=== PATIENT | male | born 1935 | race Caucasian/White ===

== ENCOUNTER 2020-06-20 14:17 | Observation (INO) | payer BC ==
[2020-06-20] MEDS ORDERED: SODIUM CHLORIDE 0.9% 500 ML 500 ML IV STA (15:34)
[2020-06-20 16:04] LABS: Appearance,Urine Turbid (Clear); Bacteria,Urine Many /hpf; Bilirubin,Urine Negative (Negative); Blood,Urine Moderate (Negative); Color,Urine Yellow; Glucose,Urine (UA) Negative (Negative); Ketones,Urine Negative (Negative); Leukocyte Esterase,Urine Large (Negative); Nitrite,Urine Negative (Negative); Protein,Urine 2+ (Negative); RBC,Urine 69 /hpf (0-5); Specific Gravity,Urine 1.017 (1.001-1.035); Urobilinogen,Urine <2.0 mg/dL (<2.0); WBC,Urine >182 /hpf (0-5)
[2020-06-20] MEDS ORDERED: cefTRIAXone IN SWFI 1,000 MG/10 ML SYRINGE IVP STA (16:11)
[2020-06-20 16:12] LABS: Albumin 3.8 g/dL (3.5-5.0); Calcium 9.2 mg/dL (8.4-10.2); Total Bilirubin 1.9 mg/dL (0.2-1.3); Total Protein 7.2 g/dL (6.3-8.2)
--- NOTE | 2020-06-20 16:17 | ED ---
Fever HPI - General Chief Complaint: Fever Stated Complaint: FLU like symptoms Time Seen by Provider: 06/20/20 14:45 Source: patient, family Mode of arrival: wheelchair Limitations: no limitations - History of Present Illness Initial Comments: Patient is a 85-year-old male past medical history of gout who presents to the emergency department with reported fever. Son is at bedside and helps provide the history. Reports that the patient had a fever on Monday. He was given some Tylenol and fever has subsequently resolved. Patient has had increased fatigue, decreased appetite and reports frequent urination. Son is concerned for urinary tract infection as he noted cloudy urine. Patient denies hematuria or difficulty voiding. Denies changes in his bowel movements. No diarrhea, constipation, melenic stools or hematochezia. He denies any abdominal pain. No chest pain or cough. No sick contacts with similar symptoms. Denies headaches or visual changes. No other alleviating, precipitating or modifying factors - Related Data Home Medications Medication Instructions Recorded Confirmed Loratadine 10 mg PO DAILY 06/20/20 06/24/20 Losartan/Hydrochlorothiazide 1 tab PO DAILY 06/20/20 06/24/20 [Losartan-Hctz 100-25 mg Tab] Pravastatin Sodium [Pravachol] 20 mg PO DAILY 06/20/20 06/24/20 Testosterone [Androgel 1.62% Gel 4 pump TOPICAL DAILY 06/20/20 06/24/20 Pump] metFORMIN HCL [Glucophage] 500 mg PO DAILY 06/20/20 06/24/20 Previous Rx's Medication Instructions Recorded Cephalexin [Keflex] 500 mg PO Q6HR #40 cap 06/20/20 Finasteride [Proscar] 5 mg PO DAILY #30 tab 06/22/20 Tamsulosin [Flomax] 0.4 mg PO PC-BRKFST #30 cap.er.24h 06/22/20 Allergies Allergy/AdvReac Type Severity Reaction Status Date / Time Sulfa (Sulfonamide Allergy Rash/Hives Verified 06/24/20 17:11 Antibiotics) Review of Systems ROS Statement: Those systems with pertinent positive or pertinent negative responses have been documented in the HPI. ROS Other: All systems not noted in ROS Statement are negative. Past Medical History Additional Past Medical History / Comment(s): UTI, gout History of Any Multi-Drug Resistant Organisms: None Reported Past Surgical History: No Surgical Hx Reported Past Psychological History: No Psychological Hx Reported Smoking Status: Former smoker Past Alcohol Use History: None Reported Past Drug Use History: None Reported General Exam Limitations: no limitations General appearance: alert, in no apparent distress Head exam: Present: atraumatic, normocephalic, normal inspection Eye exam: Present: normal appearance, PERRL, EOMI. Absent: scleral icterus, conjunctival injection, periorbital swelling ENT exam: Present: normal exam, mucous membranes moist Neck exam: Present: normal inspection. Absent: tenderness, meningismus, lymphadenopathy Respiratory exam: Present: normal lung sounds bilaterally. Absent: respiratory distress, wheezes, rales, rhonchi, stridor Cardiovascular Exam: Present: regular rate, normal rhythm, normal heart sounds. Absent: systolic murmur, diastolic murmur, rubs, gallop, clicks GI/Abdominal exam: Present: soft, distended, normal bowel sounds. Absent: tende rness, guarding, rebound, rigid Extremities exam: Present: normal inspection, full ROM, normal capillary refill. Absent: tenderness, pedal edema, joint swelling, calf tenderness Back exam: Present: normal inspection Neurological exam: Present: alert, oriented X3, CN II-XII intact Psychiatric exam: Present: normal affect, normal mood Skin exam: Present: warm, dry, intact, normal color. Absent: rash Course Vital Signs 06/20/20 06/20/20 14:46 18:19 Temperature 98.9 F Pulse Rate 107 H 114 H Respiratory 20 18 Rate Blood Pressure 125/85 145/85 O2 Sat by Pulse 96 97 Oximetry Medical Decision Making - Medical Decision Making Upon arrival patient is placed into room 4. A thorough history and physical exam was performed. Patient does have a distended belly. Laboratory studies are conduct and the patient provided a urine sample. Laboratory studies reveal a creatinine of 1.54. Urinalysis has large leukocyte esterase, 69 red blood cells, greater than 182 white blood cells, many white blood cell clumps and many bacteria. Patient was given a dose of Rocephin. CT of the patient's abdomen and pelvis demonstrates a markedly enlarged urinary bladder with bilateral hydronephrosis and hydroureter. I did discuss the diagnosis, differential and treatment options. Xiong catheter was placed and the patient was originally discharged, to follow up with urology. After catheter placement the patient did put out an initial 7.5 L. Because of the volume the patient was observed for a period of time. He does have discomfort due to the Xiong placement. I did recommend hospitalization for which the patient did agree to. Discussed case with Dr. Faulkner who accepted admission. We'll place urology on consult. Patient remained in stable condition awaiting a bed on the floor - Lab Data Result diagrams: 06/22/20 07:24 06/22/20 07:24 Lab Results 06/20/20 06/20/20 06/20/20 Range/Units 15:40 15:40 15:40 WBC 6.3 (3.8-10.6) k/uL RBC 5.32 (4.30-5.90) m/uL Hgb 16.8 (13.0-17.5) gm/dL Hct 51.4 (39.0-53.0) % MCV 96.6 (80.0-100.0) fL MCH 31.6 (25.0-35.0) pg MCHC 32.8 (31.0-37.0) g/dL RDW 13.0 (11.5-15.5) % Plt Count 350 (150-450) k/uL MPV 7.8 Neutrophils % 67 % Lymphocytes % 20 % Monocytes % 9 % Eosinophils % 1 % Basophils % 0 % Neutrophils # 4.2 (1.3-7.7) k/uL Lymphocytes # 1.3 (1.0-4.8) k/uL Monocytes # 0.6 (0-1.0) k/uL Eosinophils # 0.0 (0-0.7) k/uL Basophils # 0.0 (0-0.2) k/uL Sodium 135 L (137-145) mmol/L Potassium 5.0 (3.5-5.1) mmol/L Chloride 100 (98-107) mmol/L Carbon Dioxide 23 (22-30) mmol/L Anion Gap 12 mmol/L BUN 75 H (9-20) mg/dL Creatinine 1.54 H (0.66-1.25) mg/dL Est GFR (CKD-EPI)AfAm 47 (>60 ml/min/1.73 sqM) Est GFR (CKD-EPI)NonAf 41 (>60 ml/min/1.73 sqM) Glucose 139 H (74-99) mg/dL Plasma Lactic Acid [place] (0.7-2.0) mmol/L Calcium 9.2 (8.4-10.2) mg/dL Total Bilirubin 1.9 H (0.2-1.3) mg/dL AST 58 (17-59) U/L ALT 63 H (4-49) U/L Alkaline Phosphatase 117 (38-126) U/L Troponin I (0.000-0.034) ng/mL Total Protein 7.2 (6.3-8.2) g/dL Albumin 3.8 (3.5-5.0) g/dL Urine Color Yellow Urine Appearance Turbid (Clear) Urine pH 6.0 (5.0-8.0) Ur Specific [place] 1.017 (1.001-1.035) Urine Protein 2+ H (Negative) Urine Glucose (UA) Negative (Negative) Urine Ketones Negative (Negative) Urine Blood Moderate H (Negative) Urine Nitrite Negative (Negative) Urine Bilirubin Negative (Negative) Urine Urobilinogen <2.0 (<2.0) mg/dL Ur Leukocyte Esterase Large H (Negative) Urine RBC 69 H (0-5) /hpf Urine WBC >182 H (0-5) /hpf Urine WBC Clumps Many H (None) /hpf Urine Bacteria Many H (None) /hpf 06/20/20 06/20/20 Range/Units 15:40 15:40 WBC (3.8-10.6) k/uL RBC (4.30-5.90) m/uL Hgb (13.0-17.5) gm/dL Hct (39.0-53.0) % MCV (80.0-100.0) fL MCH (25.0-35.0) pg MCHC (31.0-37.0) g/dL RDW (11.5-15.5) % Plt Count (150-450) k/uL MPV Neutrophils % % Lymphocytes % % Monocytes % % Eosinophils % % Basophils % % Neutrophils # (1.3-7.7) k/uL Lymphocytes # (1.0-4.8) k/uL Monocytes # (0-1.0) k/uL Eosinophils # (0-0.7) k/uL Basophils # (0-0.2) k/uL Sodium (137-145) mmol/L Potassium (3.5-5.1) mmol/L Chloride (98-107) mmol/L Carbon Dioxide (22-30) mmol/L Anion Gap mmol/L BUN (9-20) mg/dL Creatinine (0.66-1.25) mg/dL Est GFR (CKD-EPI)AfAm (>60 ml/min/1.73 sqM) Est GFR (CKD-EPI)NonAf (>60 ml/min/1.73 sqM) Glucose (74-99) mg/dL Plasma Lactic Acid [place] 1.0 (0.7-2.0) mmol/L Calcium (8.4-10.2) mg/dL Total Bilirubin (0.2-1.3) mg/dL AST (17-59) U/L ALT (4-49) U/L Alkaline Phosphatase (38-126) U/L Troponin I <0.012 (0.000-0.034) ng/mL Total Protein (6.3-8.2) g/dL Albumin (3.5-5.0) g/dL Urine Color Urine Appearance (Clear) Urine pH (5.0-8.0) Ur Specific [place] (1.001-1.035) Urine Protein (Negative) Urine Glucose (UA) (Negative) Urine Ketones (Negative) Urine Blood (Negative) Urine Nitrite (Negative) Urine Bilirubin (Negative) Urine Urobilinogen (<2.0) mg/dL Ur Leukocyte Esterase (Negative) Urine RBC (0-5) /hpf Urine WBC (0-5) /hpf Urine WBC Clumps (None) /hpf Urine Bacteria (None) /hpf Disposition Clinical Impression: Urinary retention, UTI (urinary tract infection) Disposition: ADMITTED IP TO THIS [facility] Condition: Stable Is patient prescribed a controlled substance at d/c from ED?: No Time of Disposition: 17:52 Decision to Admit Reason: Admit from EC Decision Date: 06/20/20 Decision Time: 18:49
[2020-06-20 16:19] LABS: Basophils % (A) 0 %; Eosinophils % (A) 1 %; HCT 51.4 % (39.0-53.0); HGB 16.8 gm/dL (13.0-17.5); Lymphocytes # (A) 1.3 k/uL (1.0-4.8); Lymphocytes % (A) 20 %; MCH 31.6 pg (25.0-35.0); MCHC 32.8 g/dL (31.0-37.0); MCV 96.6 fL (80.0-100.0); Mean Platelet Volume 7.8; Monocytes # (A) 0.6 k/uL (0-1.0); Monocytes % (A) 9 %; Neutrophils # (A) 4.2 k/uL (1.3-7.7); Neutrophils % (A) 67 %; Platelet Count 350 k/uL (150-450); RBC 5.32 m/uL (4.30-5.90); WBC 6.3 k/uL (3.8-10.6)
--- NOTE | 2020-06-20 17:33 | CT ---
EXAMINATION TYPE: CT abdomen pelvis w con DATE OF EXAM: 06/20/2020 COMPARISON: None HISTORY: Recent fever, urinary retention and abdominal distention. CT DLP: 1350.7 mGycm Automated exposure control for dose reduction was used. CONTRAST: Performed with IV Contrast, patient injected with 80 mL of Isovue 300. Images obtained from the diaphragm to the floor the pelvis with IV contrast. Lung bases are clear. There is no pleural effusion. Heart size is normal. There is no pericardial eff usion. Liver spleen stomach pancreas gallbladder appear intact. Bile ducts are not dilated. There is no adrenal mass. There is bilateral hydronephrosis and hydroureter. There is markedly dilate d urinary bladder. Bladder measures 29 x 19 cm. Bladder extends up to the liver. There are large calc parris lower pole left kidney that measure up to 1.5 cm. There is 3 cm staghorn calculus lower pole righ t kidney. There is 1.6 cm calculus on the anterior wall of the urinary bladder. There is no inguinal hernia. There is no free fluid in the pelvis. There is no mesenteric edema. Ther e is no ascites or free air. There is no sign of a bowel obstruction. The lumbar vertebra have normal alignment. Disc spaces are fairly normal. There is no compression fra cture. Bony pelvis is intact. Hip joints are intact. IMPRESSION: Markedly dilated urinary bladder with bilateral hydronephrosis and hydroureter consistent with long-t erm chronic bladder outlet obstruction. Bilateral large renal calculi. Bladder calculus.
[2020-06-20] MEDS ORDERED: LIDOCAINE URO-JET JELLY 2% 5 ML KIT URETHRAL ONE (18:44)
[2020-06-20] MEDS ORDERED: MORPHINE SULFATE 4 MG/ML SYRINGE IVP STA (18:44)
[2020-06-20] MEDS ORDERED: NALOXONE 0.4 MG/ML 1 ML VIAL IV PRN (18:49)
[2020-06-20] MEDS ORDERED: MORPHINE SULFATE 4 MG/ML SYRINGE IV PRN (18:49)
[2020-06-20] MEDS ORDERED: ACETAMINOPHEN TAB 325 MG TAB PO PRN (18:49)
[2020-06-20 21:27] LABS: Calcium 9.2 mg/dL (8.4-10.2); Potassium 5.1 mmol/L (3.5-5.1)
[2020-06-20] MEDS: SODIUM CHLORIDE 0.9% 1,000 ML IV SCH (21:42)
[2020-06-21] MEDS: PANTOPRAZOLE 40 MG TABLET PO SCH (06:39)
[2020-06-21 07:22] LABS: Basophils # (A) 0.1 k/uL (0-0.2); Basophils % (A) 1 %; Eosinophils # (A) 0.1 k/uL (0-0.7); Eosinophils % (A) 1 %; HCT 46.6 % (39.0-53.0); HGB 15.7 gm/dL (13.0-17.5); Lymphocytes # (A) 2.1 k/uL (1.0-4.8); Lymphocytes % (A) 28 %; MCH 32.4 pg (25.0-35.0); MCHC 33.7 g/dL (31.0-37.0); MCV 95.9 fL (80.0-100.0); Mean Platelet Volume 7.4; Monocytes # (A) 0.5 k/uL (0-1.0); Monocytes % (A) 7 %; Neutrophils # (A) 4.5 k/uL (1.3-7.7); Neutrophils % (A) 60 %; Platelet Count 305 k/uL (150-450); RBC 4.86 m/uL (4.30-5.90); RDW 12.6 % (11.5-15.5); WBC 7.6 k/uL (3.8-10.6)
[2020-06-21 07:29] LABS: Calcium 8.8 mg/dL (8.4-10.2); Potassium 4.6 mmol/L (3.5-5.1)
[2020-06-21] MEDS: ENOXAPARIN 40 MG/0.4 ML SYRINGE SQ SCH (09:09)
[2020-06-21] MEDS: LORATADINE 10 MG TAB PO SCH (09:09)
[2020-06-21] MEDS: PRAVASTATIN SODIUM 20 MG TAB PO SCH (09:10)
[2020-06-21] MEDS: LOSARTAN-HCTZ 50-12.5 MG 1 EACH TAB PO SCH (09:10)
[2020-06-21 09:23] VITALS: RESP 16
--- NOTE | 2020-06-21 10:13 | P.GSCN ---
History of Present Illness Consult date: 06/21/20 Reason for Consult: Urinary retention History of present illness: Mr. Zavala is an 85 yo male admitted with urinary retention, he underwent a CT abdomen and pelvis which showed a significant distended bladder and bilateral hydronephrosis. A Donald catheter was placed, patient put out greater than 7 L while in the ED. CT also showed bilateral renal stones. He indicated his he doesn't have any voiding issues at baseline, was not aware of his bladder distention. Denies any previous surgeries, no previous history of kidney stones. Review of Systems - Constitutional Denies fever, Denies weight loss - Cardiovascular Denies chest pain, Denies shortness of breath - Respiratory Denies cough, Denies 7 - Gastrointestinal Reports as per HPI - Genitourinary Reports urinary retention - Neurological Denies headaches, Denies syncope Past Medical History Additional Past Medical History / Comment(s): UTI, gout History of Any Multi-Drug Resistant Organisms: None Reported Past Surgical History: No Surgical Hx Reported Past Anesthesia/Blood Transfusion Reactions: No Reported Reaction Past Psychological History: No Psychological Hx Reported Smoking Status: Former smoker Past Alcohol Use History: None Reported Past Drug Use History: None Reported Medications and Allergies Home Medications Medication Instructions Recorded Confirmed Type Cephalexin [Keflex] 500 mg PO Q6HR #40 cap 06/20/20 Rx Loratadine 10 mg PO DAILY 06/20/20 06/20/20 History Losartan/Hydrochlorothiazide 1 tab PO DAILY 06/20/20 06/20/20 History [Losartan-Hctz 100-25 mg Tab] Pravastatin Sodium [Pravachol] 20 mg PO DAILY 06/20/20 06/20/20 History Testosterone [Androgel 1.62% Gel 4 pump TOPICAL DAILY 06/20/20 06/20/20 History Pump] metFORMIN HCL [Glucophage] 500 mg PO DAILY 06/20/20 06/20/20 History Allergies Allergy/AdvReac Type Severity Reaction Status Date / Time Sulfa (Sulfonamide Allergy Rash/Hives Verified 06/20/20 16:46 Antibiotics) Surgical - Exam Vital Signs Temp Pulse Resp BP Pulse Ox 98.9 F 107 H 20 125/85 96 06/20/20 14:46 06/20/20 14:46 06/20/20 14:46 06/20/20 14:46 06/20/20 14:46 - General well developed, well nourished, no distress, no pain - Eyes PERRL, normal ocular movement - ENT normal nares, normal mucosa, no hearing loss - Respiratory normal expansion, normal respiratory effort - Abdomen Abdomen: soft, non tender - Genitourinary donald draining clear urine - Psychiatric oriented to time, oriented to person, oriented to place Results - Labs 06/21/20 06:26 06/21/20 06:26 Abnormal Lab Results - Last 24 Hours (Table) 06/20/20 06/20/20 06/20/20 Range/Units 15:40 15:40 20:55 Sodium 135 L 135 L (137-145) mmol/L Carbon Dioxide 21 L (22-30) mmol/L BUN 75 H 69 H (9-20) mg/dL Creatinine 1.54 H 1.40 H (0.66-1.25) mg/dL Glucose 139 H 137 H (74-99) mg/dL Total Bilirubin 1.9 H (0.2-1.3) mg/dL ALT 63 H (4-49) U/L Urine Protein 2+ H (Negative) Urine Blood Moderate H (Negative) Ur Leukocyte Esterase Large H (Negative) Urine RBC 69 H (0-5) /hpf Urine WBC >182 H (0-5) /hpf Urine WBC Clumps Many H (None) /hpf Urine Bacteria Many H (None) /hpf 06/21/20 Range/Units 06:26 Sodium (137-145) mmol/L Carbon Dioxide (22-30) mmol/L BUN 58 H (9-20) mg/dL Creatinine (0.66-1.25) mg/dL Glucose 104 H (74-99) mg/dL Total Bilirubin (0.2-1.3) mg/dL ALT (4-49) U/L Urine Protein (Negative) Urine Blood (Negative) Ur Leukocyte Esterase (Negative) Urine RBC (0-5) /hpf Urine WBC (0-5) /hpf Urine WBC Clumps (None) /hpf Urine Bacteria (None) /hpf Microbiology - Last 24 Hours (Table) 06/20/20 15:40 Urine Culture - Preliminary Urine,Voided Diabetes panel 06/20/20 06/20/20 06/21/20 Range/Units 15:40 20:55 06:26 Sodium 135 L 135 L 137 (137-145) mmol/L Potassium 5.0 5.1 4.6 (3.5-5.1) mmol/L Chloride 100 101 106 (98-107) mmol/L Carbon Dioxide 23 21 L 23 (22-30) mmol/L BUN 75 H 69 H 58 H (9-20) mg/dL Creatinine 1.54 H 1.40 H 0.99 (0.66-1.25) mg/dL Glucose 139 H 137 H 104 H (74-99) mg/dL Calcium 9.2 9.2 8.8 (8.4-10.2) mg/dL AST 58 (17-59) U/L ALT 63 H (4-49) U/L Alkaline Phosphatase 117 (38-126) U/L Total Protein 7.2 (6.3-8.2) g/dL Albumin 3.8 (3.5-5.0) g/dL Calcium panel 06/20/20 06/20/20 06/21/20 Range/Units 15:40 20:55 06:26 Calcium 9.2 9.2 8.8 (8.4-10.2) mg/dL Albumin 3.8 (3.5-5.0) g/dL Pituitary panel 06/20/20 06/20/20 06/21/20 Range/Units 15:40 20:55 06:26 Sodium 135 L 135 L 137 (137-145) mmol/L Potassium 5.0 5.1 4.6 (3.5-5.1) mmol/L Chloride 100 101 106 (98-107) mmol/L Carbon Dioxide 23 21 L 23 (22-30) mmol/L BUN 75 H 69 H 58 H (9-20) mg/dL Creatinine 1.54 H 1.40 H 0.99 (0.66-1.25) mg/dL Glucose 139 H 137 H 104 H (74-99) mg/dL Calcium 9.2 9.2 8.8 (8.4-10.2) mg/dL Adrenal panel 06/20/20 06/20/20 06/21/20 Range/Units 15:40 20:55 06:26 Sodium 135 L 135 L 137 (137-145) mmol/L Potassium 5.0 5.1 4.6 (3.5-5.1) mmol/L Chloride 100 101 106 (98-107) mmol/L Carbon Dioxide 23 21 L 23 (22-30) mmol/L BUN 75 H 69 H 58 H (9-20) mg/dL Creatinine 1.54 H 1.40 H 0.99 (0.66-1.25) mg/dL Glucose 139 H 137 H 104 H (74-99) mg/dL Calcium 9.2 9.2 8.8 (8.4-10.2) mg/dL Total Bilirubin 1.9 H (0.2-1.3) mg/dL AST 58 (17-59) U/L ALT 63 H (4-49) U/L Alkaline Phosphatase 117 (38-126) U/L Total Protein 7.2 (6.3-8.2) g/dL Albumin 3.8 (3.5-5.0) g/dL Assessment and Plan Assessment: 85-year-old male admitted with urinary retention, bilateral hydronephrosis secondary to his retention. He had a significantly distended bladder on presentation, he was unaware of his distended bladder. The put out approximately 7 L of urine while in the ED. Also has bilateral lower pole stones greater than 2 cm in size. A symptomatic from his stones. 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 -Keep Donald for 2 weeks, will start patient on Proscar and Flomax. He will most likely need cystoscopy and CMG as an outpatient -Antibiotics based on urine culture susceptibility -Will adress his stones after completing his bladder evaluation.
--- NOTE | 2020-06-21 12:18 | P.HPIM ---
History of Present Illness H&P Date: 06/20/20 Chief Complaint: Sepsis with UTI, urinary retention, acute kidney injury, severe BPH, hypert 85-year-old male one of Dr. Rehan Dick's patient with past medical history of hypertension, hyperlipidemia, history of gout and hyperglycemia who is known to have ALLERGY and mild BPH symptoms he presented to the emergency department at [facility] on 06/20/2020 and afternoon with fever and chills and slight lower abdominal discomfort he has been having temperature for the last few days some Tylenol had subsided symptom had increased fatigue and tiredness had quite bed frequent urination with slight discomfort and irritation along with the retention and slight cloudiness in the urine denies any hematuria denies any history of prostate cancer in the past no problem with diarrhea and nausea or vomiting. Was seen and evaluated demurs department initially found to have sig nificant urinary retention with his bladder all the way up to his liver site ended up having an indwelling catheter and patient had 9 L of urine passed through the catheter repeatedly. UA was positive for UTI patient was giving 1 g of Rocephin we'll consult urology patient remain having acute kidney injury with significant bleed decrease in bun and creatinine not a clear what his baseline looks like. Patient be hospitalized with above problem. Review of Systems CONSTITUTIONAL: Well-developed no acute respiratory distress. EYES: No icterus sclerae, no conjunctivitis. EARS, NOSE, MOUTH, THROAT, and FACE: No sore throat, lymphadenopathy, carotid bruits or deformity. RESPIRATORY: No SOB cough or wheezes. CARDIOVASCULAR: No CP, Palpitation, PND, Orthopnea, or angina. GASTROINTESTINAL: No Abd pain, Nausea or vomiting, no Diarrhea or constipation, No GI Bleed, no distention or masses. GENITOURINARY: Urinary retention with question of infection BPH and kidney ston e. INTEGUMENT/BREAST: Negative for any muscular injury with mild osteoarthritis.. HEMATOLOGIC/LYMPHATIC: Negative for bleed or purpura. MUSCULOSKELTAL: Negative for Myalgia or arthralgia. NEURLOGICAL: No LOC, Sz or syncope, blurred vision dizziness or abnormality.. BEHAVIORAL/PSYCH: Negative. ENDOCRINE: Negative. 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 Family history: His father age 70 from CAD, mother dying in her 70s from breast cancer, patient was only child for his parents has 2 children both are living and well. Past Medical History Additional Past Medical History / Comment(s): UTI, gout History of Any Multi-Drug Resistant Organisms: None Reported Past Surgical History: No Surgical Hx Reported Past Psychological History: No Psychological Hx Reported Smoking Status: Former smoker Past Alcohol Use History: None Reported Past Drug Use History: None Reported Medications and Allergies Home Medications Medication Instructions Recorded Confirmed Type Cephalexin [Keflex] 500 mg PO Q6HR #40 cap 06/20/20 Rx Loratadine 10 mg PO DAILY 06/20/20 06/20/20 History Losartan/Hydrochlorothiazide 1 tab PO DAILY 06/20/20 06/20/20 History [Losartan-Hctz 100-25 mg Tab] Pravastatin Sodium [Pravachol] 20 mg PO DAILY 06/20/20 06/20/20 History Testosterone [Androgel 1.62% Gel 4 pump TOPICAL DAILY 06/20/20 06/20/20 History Pump] metFORMIN HCL [Glucophage] 500 mg PO DAILY 06/20/20 06/20/20 History Allergies Allergy/AdvReac Type Severity Reaction Status Date / Time Sulfa (Sulfonamide Allergy Rash/Hives Verified 06/20/20 16:46 Antibiotics) Physical Exam Vitals: Vital Signs Temp Pulse Resp BP Pulse Ox 06/20/20 18:19 114 H 18 145/85 97 06/20/20 14:46 98.9 F 107 H 20 125/85 96 Intake and Output 06/20/20 06/20/20 06/20/20 06:59 14:59 22:59 Other: Weight 102.965 kg General Appearance: Alert, cooperative, no distress, appears stated age. Neck HEENT: Supple, no lymphadenopathy, no thyroid enlargement, no carotid bruits. Lungs: Clear to auscultation without crackles or wheezes no rhonchi, no deformity. Chest Wall: Chest wall normal expansion with deep inspiration no tenderness and no deformity was found on exam, no costochondral pain or discomfort. Heart: Regular rate and rhythm, S1, S2 normal, no murmur, rub or gallop. Back: Symmetric, no curvature, ROM normal, no CVA tenderness. Abdomen: Soft, non-tender, bowel sounds active all four quadrants, no masses, no organomegaly. Slight discomfort lower abdominal area. Extremities: Extremities normal, atraumatic, no cyanosis or edema. Pulses: 2+ and symmetric. Skin: Skin color, texture, tugor normal, no rashes or lesions. Neurologic: Alert oriented x3 cranial nerves II through XII intact, no motor deficit, no abnormal balance or gait. Results CBC & Chem 7: 06/21/20 06:26 06/21/20 06:26 Labs: Abnormal Lab Results - Last 24 Hours (Table) 06/20/20 06/20/20 Range/Units 15:40 15:40 Sodium 135 L (137-145) mmol/L BUN 75 H (9-20) mg/dL Creatinine 1.54 H (0.66-1.25) mg/dL Glucose 139 H (74-99) mg/dL Total Bilirubin 1.9 H (0.2-1.3) mg/dL ALT 63 H (4-49) U/L Urine Protein 2+ H (Negative) Urine Blood Moderate H (Negative) Ur Leukocyte Esterase Large H (Negative) Urine RBC 69 H (0-5) /hpf Urine WBC >182 H (0-5) /hpf Urine WBC Clumps Many H (None) /hpf Urine Bacteria Many H (None) /hpf Thrombosis Risk Factor Assmnt - DVT/VTE Prophylaxis DVT/VTE Prophylaxis: Pharmacologic Prophylaxis ordered, Mechanical Prophylaxis ordered Assessment and Plan Assessment: 1 sepsis and UTI: His lactic acid was normal, significant decline BUN/creatinine with GFR only 41 CBC at 6.3 with urine was very positive patient was giving 1 g of Rocephin will continue Rocephin until the cultures back. 2 acute kidney injury: Most likely ATN, continue hydration repeat BUN/creatinine next 24 hours. 3 urinary retention: With significantly high amount of urine retained Xiong catheter was inserted patient will continue Xiong catheter and consult urology and start patient on Flomax as well. 4 bilateral hydronephrosis: Most likely from usp a chronic bladder outlet obstruction. Patient will continue Xiong catheter for now will be seen urology. 5 incidental finding of bilateral large kidney stone: No intervention required this point. 6 hypertension: Continue patient on losartan and hydrochlorothiazide. 7 hyperlipidemia: Remain on pravastatin 20 mg a day. 8 hyperglycemia: Remain on Glucophage Accu-Chek with sliding scale coverage. 9 DVT prophylaxis: Patient will be on Lovenox 40 mg subcutaneous daily. 10 GI prophylaxis: Continue patient on Protonix 40 mg daily. CODE STATUS: Full code. Admit patient to the inpatient service for 1-2 nights.
--- NOTE | 2020-06-21 12:21 | P.PN ---
Subjective Progress Note Date: 06/21/20 Principal diagnosis: Sepsis with UTI, urinary retention, acute kidney injury, severe BPH, hypert 85-year-old male one of Dr. Rehan Dick's patient with past medical history of hypertension, hyperlipidemia, history of gout and hyperglycemia who is known to have ALLERGY and mild BPH symptoms he presented to the emergency department at [facility] on 06/20/2020 and afternoon with fever and chills and slight lower abdominal discomfort he has been having temperature for the last few days some Tylenol had subsided symptom had increased fatigue and tiredness had quite bed frequent urination with slight discomfort and irritation along with the retention and slight cloudiness in the urine denies any hematuria denies any history of prostate cancer in the past no problem with diarrhea and nausea or vomiting. Was seen [facility] initially found to have sig nificant urinary retention with his bladder all the way up to his liver site ended up having an indwelling catheter and patient had 9 L of urine passed through the catheter repeatedly. UA was positive for UTI patient was giving 1 g of Rocephin we'll consult urology patient remain having acute kidney injury with significant bleed decrease in bun and creatinine not a clear what his baseline looks like. Patient be hospitalized with above problem. 06/21: Patient is feeling much better today was seen urology and agree with the current plan his kidney function has improved significantly, remain having indwelling catheter which will be remaining for the next 2 weeks and was instructed to start patient on Flomax and finasteride. Cultures still pending at this point will continue Rocephin 1 g daily. Objective - Vital Signs Vital signs: Vital Signs Temp 97.9 F 06/21/20 09:00 Pulse 92 06/21/20 09:00 Resp 16 06/21/20 09:00 BP 120/58 06/21/20 09:00 Pulse Ox 94 L 06/21/20 09:00 Intake & Output 06/20/20 06/21/20 06/21/20 18:59 06:59 18:59 Intake Total 600 Output Total 1450 1000 Balance -850 -1000 Weight 102.965 kg 102.965 kg Intake: Intake, IV Titration 600 Amount Sodium Chloride 0.9% 1, 600 000 ml @ 75 mls/hr IV . [id number] [facility] Rx#:[id number] Oral 0 Output: Urine 1450 1000 Other: Voiding Method Indwelling Catheter - Exam Review of Systems CONSTITUTIONAL: Well-developed no acute respiratory distress. EYES: No icterus sclerae, no conjunctivitis. EARS, NOSE, MOUTH, THROAT, and FACE: No sore throat, lymphadenopathy, carotid bruits or deformity. RESPIRATORY: No SOB cough or wheezes. CARDIOVASCULAR: No CP, Palpitation, PND, Orthopnea, or angina. GASTROINTESTINAL: No Abd pain, Nausea or vomiting, no Diarrhea or constipation, No GI Bleed, no distention or masses. GENITOURINARY: Urinary retention with question of infection BPH and kidney stone. INTEGUMENT/BREAST: Negative for any muscular injury with mild osteoarthritis.. HEMATOLOGIC/LYMPHATIC: Negative for bleed or purpura. MUSCULOSKELTAL: Negative for Myalgia or arthralgia. NEURLOGICAL: No LOC, Sz or syncope, blurred vision dizziness or abnormality.. BEHAVIORAL/PSYCH: Negative. ENDOCRINE: Negative. Physical Exam Vitals: Vital Signs Temp Pulse Resp BP Pulse Ox 06/20/20 18:19 114 H 18 145/85 97 06/20/20 14:46 98.9 F 107 H 20 125/85 96 Intake and Output 06/20/20 06/20/20 06/20/20 06:59 14:59 22:59 Other: Weight 102.965 kg General Appearance: Alert, cooperative, no distress, appears stated age. Neck HEENT: Supple, no lymphadenopathy, no thyroid enlargement, no carotid bruits. Lungs: Clear to auscultation without crackles or wheezes no rhonchi, no def ormity. Chest Wall: Chest wall normal expansion with deep inspiration no tenderness and no deformity was found on exam, no costochondral pain or discomfort. Heart: Regular rate and rhythm, S1, S2 normal, no murmur, rub or gallop. Back: Symmetric, no curvature, ROM normal, no CVA tenderness. Abdomen: Soft, non-tender, bowel sounds active all four quadrants, no masses, no organomegaly. Slight discomfort lower abdominal area. Extremities: Extremities normal, atraumatic, no cyanosis or edema. Pulses: 2+ and symmetric. Skin: Skin color, texture, tugor normal, no rashes or lesions. Neurologic: Alert oriented x3 cranial nerves II through XII intact, no motor deficit, no abnormal balance or gait. - Labs CBC & Chem 7: 06/21/20 06:26 06/21/20 06:26 Labs: Abnormal Lab Results - Last 24 Hours (Table) 06/20/20 06/20/20 06/20/20 Range/Units 15:40 15:40 20:55 Sodium 135 L 135 L (137-145) mmol/L Carbon Dioxide 21 L (22-30) mmol/L BUN 75 H 69 H (9-20) mg/dL Creatinine 1.54 H 1.40 H (0.66-1.25) mg/dL Glucose 139 H 137 H (74-99) mg/dL Total Bilirubin 1.9 H (0.2-1.3) mg/dL ALT 63 H (4-49) U/L Urine Protein 2+ H (Negative) Urine Blood Moderate H (Negative) Ur Leukocyte Esterase Large H (Negative) Urine RBC 69 H (0-5) /hpf Urine WBC >182 H (0-5) /hpf Urine WBC Clumps Many H (None) /hpf Urine Bacteria Many H (None) /hpf 06/21/20 Range/Units 06:26 Sodium (137-145) mmol/L Carbon Dioxide (22-30) mmol/L BUN 58 H (9-20) mg/dL Creatinine (0.66-1.25) mg/dL Glucose 104 H (74-99) mg/dL Total Bilirubin (0.2-1.3) mg/dL ALT (4-49) U/L Urine Protein (Negative) Urine Blood (Negative) Ur Leukocyte Esterase (Negative) Urine RBC (0-5) /hpf Urine WBC (0-5) /hpf Urine WBC Clumps (None) /hpf Urine Bacteria (None) /hpf Microbiology - Last 24 Hours (Table) 06/20/20 15:40 Urine Culture - Preliminary Urine,Voided Assessment and Plan Assessment: 1 sepsis and UTI: His lactic acid was normal, significant decline BUN/creatinine with GFR only 41 CBC at 6.3 with urine was very positive patient was giving 1 g of Rocephin will continue Rocephin until the cultures back. Infection is much better continue Rocephin until cultures back. 2 acute kidney injury: Most likely ATN, significant improvement on GFR compared to yesterday. 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 Patient will continue Xiong catheter for now will be seen urology. 5 incidental finding of bilateral large kidney stone: No intervention required this point. 6 hypertension: Continue patient on losartan and hydrochlorothiazide. 7 hyperlipidemia: Remain on pravastatin 20 mg a day. 8 hyperglycemia: Remain on Glucophage Accu-Chek with sliding scale coverage. 9 DVT prophylaxis: Patient will be on Lovenox 40 mg subcutaneous daily. 10 GI prophylaxis: Continue patient on Protonix 40 mg daily. Discharge planning: The patient stable tomorrow might be able to send him home with indwelling catheter and oral antibiotics.
[2020-06-21] MEDS: TAMSULOSIN 0.4 MG CAP.ER.24H PO SCH (15:48)
[2020-06-21] MEDS: SODIUM CHLORIDE 0.9% 1,000 ML IV SCH ×2 (15:49→20:51)
[2020-06-22] MEDS: PANTOPRAZOLE 40 MG TABLET PO SCH (06:50)
[2020-06-22 07:48] LABS: HCT 46.2 % (39.0-53.0); HGB 15.8 gm/dL (13.0-17.5); MCH 33.3 pg (25.0-35.0); MCHC 34.2 g/dL (31.0-37.0); MCV 97.3 fL (80.0-100.0); Platelet Count 370 k/uL (150-450); RBC 4.75 m/uL (4.30-5.90); RDW 12.7 % (11.5-15.5); WBC 8.3 k/uL (3.8-10.6)
[2020-06-22 08:07] LABS: Albumin 3.1 g/dL (3.5-5.0); Calcium 8.8 mg/dL (8.4-10.2); Potassium 4.4 mmol/L (3.5-5.1); Total Bilirubin 0.8 mg/dL (0.2-1.3)
[2020-06-22] MEDS ORDERED: FINASTERIDE 5 MG TAB PO SCH (09:00)
--- NOTE | 2020-06-22 09:37 | P.DS ---
Providers Date of admission: 06/20/20 18:49 Expected date of discharge: 06/22/20 Attending physician: Sukumar Faulkner Consults: 06/20/20 18:51 Consult Physician Urgent Consulting Provider: Melvin Strange Consult Reason/Comments: acute urinary retention, acute uti Do you want consulting provider notified?: Yes Primary care physician: Rehan Dick [facility] Course: 85-year-old male one of Dr. Rehan Dick's patient with past medical history of hypertension, hyperlipidemia, history of gout and hyperglycemia who is known to have ALLERGY and mild BPH symptoms he presented to the emergency department at [facility] on 06/20/2020 and afternoon with fever and chills and slight lower abdominal discomfort he has been having temperature for the last few days some Tylenol had subsided symptom had increased fatigue and tiredness had quite bed frequent urination with slight discomfort and irritation along with the retention and slight cloudiness in the urine denies any hematuria denies any history of prostate cancer in the past no problem with diarrhea and nausea or vomiting. Was seen and evaluated [facility] initially found to have significant urinary retention with his bladder all the way up to his liver site ended up having an indwelling catheter and patient had 9 L of urine passed through the catheter repeatedly. UA was positive for UTI patient was giving 1 g of Rocephin we'll consult urology patient remain having acute kidney injury with significant bleed decrease in bun and creatinine not a clear what his baseline looks like. Patient be hospitalized with above problem. 06/22: Patient evaluated this morning, resting in bed, in no acute distress. Patient expresses he would like to be discharged today. Urology consult appreciated, plan is to continue on finasteride along with Flomax, he'll be discharged with the Xiong catheter and follow-up with urology as outpatient to discuss possible cystoscopy and cystometrogram. From urology is note, will keep Xiong catheter in for 2 weeks. Urine culture still pending shows gram-negative bacilli, will be discharged on Keflex. Kidney function did improve today, creatinine 0.95, BUN 39, GFR 74. Discharge diagnoses 1 sepsis and UTI 2 acute kidney injury 3 urinary retention 4 bilateral hydronephrosis 5 incidental finding of bilateral large kidney stone 6 hypertension 7 hyperlipidemia 8 hyperglycemia The above impression and plan of care have been discussed and directed by signing physician. Faustina Fletcher nurse practitioner acting as scribe for signing physician. Patient Condition at Discharge: Stable Plan - Discharge Summary New Discharge Prescriptions: New Cephalexin [Keflex] 500 mg PO Q6HR #40 cap Tamsulosin [Flomax] 0.4 mg PO PC-BRKFST #30 cap.er.24h Finasteride [Proscar] 5 mg PO DAILY #30 tab Continue metFORMIN HCL [Glucophage] 500 mg PO DAILY Pravastatin Sodium [Pravachol] 20 mg PO DAILY Losartan/Hydrochlorothiazide [Losartan-Hctz 100-25 mg Tab] 1 tab PO DAILY Loratadine 10 mg PO DAILY Testosterone [Androgel 1.62% Gel Pump] 4 pump TOPICAL DAILY Discharge Medication List Cephalexin [Keflex] 500 mg PO Q6HR #40 cap 06/20/20 [Rx] Loratadine 10 mg PO DAILY 06/20/20 [History] Losartan/Hydrochlorothiazide [Losartan-Hctz 100-25 mg Tab] 1 tab PO DAILY 06/20/20 [History] Pravastatin Sodium [Pravachol] 20 mg PO DAILY 06/20/20 [History] Testosterone [Androgel 1.62% Gel Pump] 4 pump TOPICAL DAILY 06/20/20 [History] metFORMIN HCL [Glucophage] 500 mg PO DAILY 06/20/20 [History] Finasteride [Proscar] 5 mg PO DAILY #30 tab 06/22/20 [Rx] Tamsulosin [Flomax] 0.4 mg PO PC-BRKFST #30 cap.er.24h 06/22/20 [Rx] Follow up Appointment(s)/Referral(s): Melvin Strange MD [STAFF PHYSICIAN] - 07/07/20 2:20 pm Rehan Dick MD [Primary Care Provider] - 1-2 days Patient Instructions/Handouts: Urinary Retention in Men (ED), Urinary Tract Infection in Men (ED) Activity/Diet/Wound Care/Special Instructions: Please follow-up with your primary care doctor within 2-4 days. The Xiong catheter will need to remain in place for 1-2 weeks. Follow up with Dr. Strange, the urologist in 1 week for evaluation. He will be the one to remove the catheter. Return to the ED for any new or worsening symptoms. Discharge Disposition: HOME SELF-CARE
[2020-06-22 09:39] VITALS: BP 112/57; PULSE 81; TEMP 97.9
[2020-06-22] MEDS: TAMSULOSIN 0.4 MG CAP.ER.24H PO SCH (09:39)
[2020-06-22] MEDS: PRAVASTATIN SODIUM 20 MG TAB PO SCH (09:39)
[2020-06-22] MEDS: LOSARTAN-HCTZ 50-12.5 MG 1 EACH TAB PO SCH (09:39)
[2020-06-22] MEDS: LORATADINE 10 MG TAB PO SCH (09:39)
[2020-06-22] MEDS: ENOXAPARIN 40 MG/0.4 ML SYRINGE SQ SCH (09:40)
== END 2020-06-22 10:30 | disposition home or self-care (01) ==
LOC: EC 14:17 → 1SOBS 18:49
PROVIDERS: ADMIT Internal Medicine Geriatric Medicine; ATTEND Internal Medicine Geriatric Medicine
DX: A41.9 Sepsis, unspecified organism (principal); N39.0 Urinary tract infection, site not specified; N17.9 Acute kidney failure, unspecified; R33.9 Retention of urine, unspecified; N20.0 Calculus of kidney; N13.4 Hydroureter; N13.6 Pyonephrosis; N40.0 Benign prostatic hyperplasia without lower urinary tract symptoms; I10 Essential (primary) hypertension; E78.5 Hyperlipidemia, unspecified; R73.9 Hyperglycemia, unspecified; M10.9 Gout, unspecified; Z87.891 Personal history of nicotine dependence; Z79.84 Long term (current) use of oral hypoglycemic drugs; Z79.899 Other long term (current) drug therapy; Z88.2 Allergy status to sulfonamides
CPT/HCPCS: 96361 ×3; 96365; 96372; 96375; 96376; 99285; 36415; 93005; 80053 ×2; 80048 ×2; 83605; 84484; 85025 ×2; 85027; 81001; 87086; 87077; 87186; 74177; G0378 ×3; S0138; J2270; J1650; J0696 ×2; Q9967

== ENCOUNTER 2020-06-24 14:51 | Emergency (ER) | payer BC ==
[2020-06-24 15:00] VITALS: RESP 18; TEMP 97.9
[2020-06-24 16:40] LABS: ALT 45 U/L (4-49); AST 35 U/L (17-59); African American GFR (CKD) >90 (>60 ml/min/1.73 sqM); Albumin 2.8 g/dL (3.5-5.0); Alkaline Phosphatase 80 U/L (38-126); Anion Gap 3 mmol/L; Blood Urea Nitrogen 21 mg/dL (9-20); Calcium 8.3 mg/dL (8.4-10.2); Carbon Dioxide 28 mmol/L (22-30); Chloride 107 mmol/L (98-107); Glucose 179 mg/dL (74-99); Non-African American GFR(CKD) 82 (>60 ml/min/1.73 sqM); Potassium 4.3 mmol/L (3.5-5.1); Sodium 138 mmol/L (137-145); Total Bilirubin 0.4 mg/dL (0.2-1.3); Total Protein 5.5 g/dL (6.3-8.2)
[2020-06-24 16:46] LABS: Appearance,Urine Cloudy (Clear); Bacteria,Urine Rare /hpf; Bilirubin,Urine Negative (Negative); Blood,Urine Moderate (Negative); Color,Urine Yellow; Glucose,Urine (UA) Negative (Negative); Ketones,Urine Negative (Negative); Leukocyte Esterase,Urine Large (Negative); Mucus,Urine Rare /hpf; Nitrite,Urine Negative (Negative); PH, Urine 5.5 (5.0-8.0); Protein,Urine 1+ (Negative); RBC,Urine 127 /hpf (0-5); Specific Gravity,Urine 1.016 (1.001-1.035); Squamous Epithelial Cell,Urine <1 /hpf (0-4); Urobilinogen,Urine <2.0 mg/dL (<2.0); WBC,Urine 44 /hpf (0-5)
[2020-06-24 16:55] LABS: HCT 42.3 % (39.0-53.0); HGB 14.3 gm/dL (13.0-17.5); MCH 32.3 pg (25.0-35.0); MCHC 33.8 g/dL (31.0-37.0); MCV 95.5 fL (80.0-100.0); Mean Platelet Volume 7.1; Platelet Count 346 k/uL (150-450); RBC 4.43 m/uL (4.30-5.90); RDW 12.8 % (11.5-15.5); WBC 9.5 k/uL (3.8-10.6)
[2020-06-24 17:20] LABS: Band Neutrophils % 3 %; Eosinophils # (M) 0.29 k/uL (0-0.7); Lymphocytes # (M) 1.62 k/uL (1.0-4.8); Metamyelocytes # (M) 0.19 k/uL (0); Metamyelocytes % 2 %; Monocytes # (M) 0.86 k/uL (0-1.0); Myelocytes % 1 %; Neutrophils % (M) 67 %; Nucleated Red Blood Cells 0 /100 WBC (0-0); Total Cells Counted 200
[2020-06-24 17:27] VITALS: BP 143/81; PULSE 103
--- NOTE | 2020-06-24 17:36 | ED ---
General Adult HPI - General Chief complaint: Recheck/Abnormal Lab/Rx Stated complaint: Revisit Urogenital Time Seen by Provider: 06/24/20 14:55 Source: patient, family Mode of arrival: wheelchair Limitations: no limitations - History of Present Illness Initial comments: The patient is an 85-year-old male with past medical history of gout and recent urinary tract infection presents emergency Department with his daughter. Daughter states that she just came into town. She knows the patient was admitted to the hospital however she was concerned that the patient was discharged too early. He went home with a catheter in place. He is taking his antibiotics as directed and has follow-up with Dr. méndez in 2 weeks. Daughter is concerned that the Xiong bag is not being Cleaned away and showed. She is also concerned that her father hasn't been eating and believes he is going "septic" from his infection. She also makes mention that the patient has been depressed lately and agitated. They will get into arguments the patient will say that he "wants to ". When questioning the patient he states he feels much improved from when he was hospitalized. States that he no longer has any suprapubic pain. Has been taking his antibiotics as directed. No fevers or chills. Denies any abdominal pain. He does have some coming into the house to help him. He thinks his daughter is "overreacting. He states he doesn't need any help at home and he doesn't want to be hospitalized. Patient is alert and oriented. Denies feeling depressed or suicidal. Reports he never made these comments to his daughter. The patient denies any chest pain, fevers or cough. No other alleviating, precipitating or modifying factors - Related Data Home Medications Medication Instructions Recorded Confirmed Loratadine 10 mg PO DAILY 06/20/20 06/24/20 Losartan/Hydrochlorothiazide 1 tab PO DAILY 06/20/20 06/24/20 [Losartan-Hctz 100-25 mg Tab] Pravastatin Sodium [Pravachol] 20 mg PO DAILY 06/20/20 06/24/20 Testosterone [Androgel 1.62% Gel 4 pump TOPICAL DAILY 06/20/20 06/24/20 Pump] metFORMIN HCL [Glucophage] 500 mg PO DAILY 06/20/20 06/24/20 Previous Rx's Medication Instructions Recorded Cephalexin [Keflex] 500 mg PO Q6HR #40 cap 06/20/20 Finasteride [Proscar] 5 mg PO DAILY #30 tab 06/22/20 Tamsulosin [Flomax] 0.4 mg PO PC-BRKFST #30 cap.er.24h 06/22/20 Allergies Allergy/AdvReac Type Severity Reaction Status Date / Time Sulfa (Sulfonamide Allergy Rash/Hives Verified 06/24/20 17:11 Antibiotics) Review of Systems ROS Statement: Those systems with pertinent positive or pertinent negative responses have been documented in the HPI. ROS Other: All systems not noted in ROS Statement are negative. Past Medical History Additional Past Medical History / Comment(s): UTI, gout History of Any Multi-Drug Resistant Organisms: None Reported Past Surgical History: No Surgical Hx Reported Past Anesthesia/Blood Transfusion Reactions: No Reported Reaction Past Psychological History: Depression Smoking Status: Former smoker Past Alcohol Use History: Occasional Past Drug Use History: None Reported General Exam Limitations: no limitations General appearance: alert, in no apparent distress Head exam: Present: atraumatic, normocephalic, normal inspection Eye exam: Present: normal appearance, PERRL, EOMI. Absent: scleral icterus, conjunctival injection, periorbital swelling ENT exam: Present: normal exam, mucous membranes moist Neck exam: Present: normal inspection. Absent: tenderness, meningismus, lymphadenopathy Respiratory exam: Present: normal lung sounds bilaterally. Absent: respiratory distress, wheezes, rales, rhonchi, stridor Cardiovascular Exam: Present: regular rate, normal rhythm, normal heart sounds. Absent: systolic murmur, diastolic murmur, rubs, gallop, clicks GI/Abdominal exam: Present: soft, normal bowel sounds. Absent: distended, tenderness, guarding, rebound, rigid Extremities exam: Present: normal inspection, full ROM, normal capillary refill. Absent: tenderness, pedal edema, joint swelling, calf tenderness Back exam: Present: normal inspection Neurological exam: Present: alert, oriented X3, CN II-XII intact Psychiatric exam: Present: normal affect, normal mood Skin exam: Present: warm, dry, intact, normal color. Absent: rash Course Vital Signs 06/24/20 06/24/20 06/24/20 14:54 17:26 17:54 Temperature 97.9 F 97.9 F Pulse Rate 89 103 H 103 H Respiratory 18 18 18 Rate Blood Pressure 121/75 143/81 143/81 O2 Sat by Pulse 100 98 98 Oximetry Medical Decision Making - Medical Decision Making Upon arrival patient was placed into room 4. A thorough history and physical exam was performed. Xiong is in place and is draining yellow urine. Abdomen which was previously distended is no longer. Daughter is requesting repeat laboratory studies to ensure improvement in the patient's urine tract infection. Laboratory studies are reviewed. Patient's creatinine has returned to normal. He continues to have some persistent rare bacteria, red blood cells and white blood cells. Microbiology is checked and the patient's previous sample demonstrated Citrobacter which is sensitive to cephalosporins. Patient does have further antibiotics yet to take. The results are discussed with the patient. He is adamant that he wants to go home at this time. He is alert and oriented. Reports that he is not depressed and never made any of these comments. I do question the patient's daughter whether she does think that the patient has capacity to make these decisions and she does believe that he does. She reports that she will talk to the primary care physician in regards to getting the patient additional home health care. I did request to have social work come by and evaluate the patient in regards to his depression however the patient becomes agitated as he is being kept against his will. Daughter states she does feel comfortable taking her father home and does not want social work to evaluate him at this time. Daughter will be staying with him for the holiday. They're instructed to follow up with their primary care physician in recurrence to the patient's mood and home health care. The patient of any new or worsening symptoms she should bring him back to the emergency room. Patient was eagerly discharged in stable condition - Lab Data Result diagrams: 06/24/20 16:20 06/24/20 16:20 Lab Results 06/24/20 06/24/20 06/24/20 Range/Units 16:20 16:20 16:20 WBC 9.5 (3.8-10.6) k/uL RBC 4.43 (4.30-5.90) m/uL Hgb 14.3 (13.0-17.5) gm/dL Hct 42.3 (39.0-53.0) % MCV 95.5 (80.0-100.0) fL MCH 32.3 (25.0-35.0) pg MCHC 33.8 (31.0-37.0) g/dL RDW 12.8 (11.5-15.5) % Plt Count 346 (150-450) k/uL MPV 7.1 Neutrophils % (Manual) 67 % Band Neuts % (Manual) 3 % Lymphocytes % (Manual) 17 % Monocytes % (Manual) 9 % Eosinophils % (Manual) 3 % Metamyelocytes % 2 % Myelocytes % 1 % Neutrophils # (Manual) 6.60 (1.3-7.7) k/uL Lymphocytes # (Manual) 1.62 (1.0-4.8) k/uL Monocytes # (Manual) 0.86 (0-1.0) k/uL Eosinophils # (Manual) 0.29 (0-0.7) k/uL Metamyelocytes # (Man) 0.19 H (0) k/uL Myelocytes # (Manual) 0.10 H (0) k/uL Nucleated RBCs 0 (0-0) /100 WBC Manual Slide Review Performed RBC Morphology Normal Sodium 138 (137-145) mmol/L Potassium 4.3 (3.5-5.1) mmol/L Chloride 107 (98-107) mmol/L Carbon Dioxide 28 (22-30) mmol/L Anion Gap 3 mmol/L BUN 21 H (9-20) mg/dL Creatinine 0.81 (0.66-1.25) mg/dL Est GFR (CKD-EPI)AfAm >90 (>60 ml/min/1.73 sqM) Est GFR (CKD-EPI)NonAf 82 (>60 ml/min/1.73 sqM) Glucose 179 H (74-99) mg/dL Plasma Lactic Acid [place] (0.7-2.0) mmol/L Calcium 8.3 L (8.4-10.2) mg/dL Total Bilirubin 0.4 (0.2-1.3) mg/dL AST 35 (17-59) U/L ALT 45 (4-49) U/L Alkaline Phosphatase 80 (38-126) U/L Total Protein 5.5 L (6.3-8.2) g/dL Albumin 2.8 L (3.5-5.0) g/dL Urine Color Yellow Urine Appearance Cloudy (Clear) Urine pH 5.5 (5.0-8.0) Ur Specific [place] 1.016 (1.001-1.035) Urine Protein 1+ H (Negative) Urine Glucose (UA) Negative (Negative) Urine Ketones Negative (Negative) Urine Blood Moderate H (Negative) Urine Nitrite Negative (Negative) Urine Bilirubin Negative (Negative) Urine Urobilinogen <2.0 (<2.0) mg/dL Ur Leukocyte Esterase Large H (Negative) Urine RBC 127 H (0-5) /hpf Urine WBC 44 H (0-5) /hpf Ur Squamous Epith Cells <1 (0-4) /hpf Urine Bacteria Rare H (None) /hpf Urine Mucus Rare H (None) /hpf 06/24/ Range/Units 16:20 WBC (3.8-10.6) k/uL RBC (4.30-5.90) m/uL Hgb (13.0-17.5) gm/dL Hct (39.0-53.0) % MCV (80.0-100.0) fL MCH (25.0-35.0) pg MCHC (31.0-37.0) g/dL RDW (11.5-15.5) % Plt Count (150-450) k/uL MPV Neutrophils % (Manual) % Band Neuts % (Manual) % Lymphocytes % (Manual) % Monocytes % (Manual) % Eosinophils % (Manual) % Metamyelocytes % % Myelocytes % % Neutrophils # (Manual) (1.3-7.7) k/uL Lymphocytes # (Manual) (1.0-4.8) k/uL Monocytes # (Manual) (0-1.0) k/uL Eosinophils # (Manual) (0-0.7) k/uL Metamyelocytes # (Man) (0) k/uL Myelocytes # (Manual) (0) k/uL Nucleated RBCs (0-0) /100 WBC Manual Slide Review RBC Morphology Sodium (137-145) mmol/L Potassium (3.5-5.1) mmol/L Chloride (98-107) mmol/L Carbon Dioxide (22-30) mmol/L Anion Gap mmol/L BUN (9-20) mg/dL Creatinine (0.66-1.25) mg/dL Est GFR (CKD-EPI)AfAm (>60 ml/min/1.73 sqM) Est GFR (CKD-EPI)NonAf (>60 ml/min/1.73 sqM) Glucose (74-99) mg/dL Plasma Lactic Acid [place] 1.2 (0.7-2.0) mmol/L Calcium (8.4-10.2) mg/dL Total Bilirubin (0.2-1.3) mg/dL AST (17-59) U/L ALT (4-49) U/L Alkaline Phosphatase (38-126) U/L Total Protein (6.3-8.2) g/dL Albumin (3.5-5.0) g/dL Urine Color Urine Appearance (Clear) Urine pH (5.0-8.0) Ur Specific [place] (1.001-1.035) Urine Protein (Negative) Urine Glucose (UA) (Negative) Urine Ketones (Negative) Urine Blood (Negative) Urine Nitrite (Negative) Urine Bilirubin (Negative) Urine Urobilinogen (<2.0) mg/dL Ur Leukocyte Esterase (Negative) Urine RBC (0-5) /hpf Urine WBC (0-5) /hpf Ur Squamous Epith Cells (0-4) /hpf Urine Bacteria (None) /hpf Urine Mucus (None) /hpf Disposition Clinical Impression: UTI (urinary tract infection), Urinary retention, Depression Disposition: HOME SELF-CARE Condition: Stable Instructions (If sedation given, give patient instructions): Urinary Tract Infection in Men (ED) Additional Instructions: Please follow-up with your primary care doctor in 2-4 days. Return to the ED for any new or worsening symptoms. Is patient prescribed a controlled substance at d/c from ED?: No Referrals: Rehan Dick MD [Primary Care Provider] - 1-2 days Time of Disposition: 17:34
== END 2020-06-24 17:54 | disposition home or self-care (01) ==
LOC: EC 14:51
DX: N39.0 Urinary tract infection, site not specified (principal); R33.9 Retention of urine, unspecified; F32.9 Major depressive disorder, single episode, unspecified; Z79.899 Other long term (current) drug therapy; Z79.84 Long term (current) use of oral hypoglycemic drugs; Z79.890 Hormone replacement therapy; Z88.2 Allergy status to sulfonamides; Z87.891 Personal history of nicotine dependence; Z96.0 Presence of urogenital implants
CPT/HCPCS: 36415; 80053; 81001; 83605; 85025; 87086; 99283

== ENCOUNTER → 2021-10-28 | Outpatient (CLI) | payer BC, MEDICARE ==
[2021-10-28 15:17] LABS: ALT 28 U/L (10-49); AST 26 U/L (14-35); African American GFR (CKD) 89.9 (60.0-200.0); Albumin 4.1 g/dL (3.8-4.9); Albumin/Globulin Ratio 1.71 (1.60-3.17); Alkaline Phosphatase 80 U/L (41-126); Blood Urea Nitrogen 23.4 mg/dL (9.0-27.0); Calcium 9.1 mg/dL (8.7-10.3); Carbon Dioxide 26.5 mmol/L (20.0-27.5); Chloride 107 mmol/L (96-109); Chol/HDL Ratio 2.24 Ratio; Globulin 2.4 g/dL (1.6-3.3); Glucose 113 mg/dL (70-110); LDL Cholesterol,Calculated 36.1 mg/dL (0.0-131.0); Non-African American GFR(CKD) 77.6 (60.0-200.0); Potassium 4.2 mmol/L (3.5-5.5); Sodium 142 mmol/L (135-145); Total Protein 6.5 g/dL (6.2-8.2); VLDL Calculation 13.56 mg/dL (5.00-40.00)
== END | disposition home or self-care (01) ==
LOC: LABWHC1 09:57
PROVIDERS: ATTEND Nurse Practitioner Adult Health
DX: I10 Essential (primary) hypertension (principal); E78.2 Mixed hyperlipidemia
CPT/HCPCS: 36415; 80053; 80061

== ENCOUNTER → 2022-03-23 | Outpatient (CLI) | payer BC, MEDICARE ==
[2022-03-23 18:01] LABS: HCT 39.8 % (39.6-50.0); HGB 12.8 g/dL (13.0-17.0); MCH 31.8 pg (27.0-32.0); MCHC 32.2 g/dL (32.0-37.0); Mean Platelet Volume 10.9 fL (9.5-12.2); NRBC Per 100 WBC 0 /100 WBCS (0.0-0.0); Platelet Count 216 X 10*3/uL (140-440); RBC 4.02 X 10*6/uL (4.40-5.60); WBC 7.97 X 10*3/uL (4.50-10.00)
[2022-03-23 18:14] LABS: ALT 26 U/L (10-49); AST 22 U/L (14-35); African American GFR (CKD) 81.3 (60.0-200.0); Albumin 4.1 g/dL (3.8-4.9); Albumin/Globulin Ratio 2.05 (1.60-3.17); Alkaline Phosphatase 82 U/L (41-126); Blood Urea Nitrogen 32.6 mg/dL (9.0-27.0); Calcium 9.3 mg/dL (8.7-10.3); Carbon Dioxide 27.5 mmol/L (20.0-27.5); Chloride 103 mmol/L (96-109); Chol/HDL Ratio 2.44 Ratio; Glucose 119 mg/dL (70-110); LDL Cholesterol,Calculated 42.4 mg/dL (0.0-131.0); Non-African American GFR(CKD) 70.1 (60.0-200.0); Potassium 4.5 mmol/L (3.5-5.5); Sodium 142 mmol/L (135-145); Total Protein 6.1 g/dL (6.2-8.2); VLDL Calculation 16.56 mg/dL (5.00-40.00)
== END | disposition home or self-care (01) ==
LOC: LABWHC1 09:58
PROVIDERS: ATTEND Internal Medicine Interventional Cardiology
DX: I48.0 Paroxysmal atrial fibrillation (principal); E78.2 Mixed hyperlipidemia
CPT/HCPCS: 36415; 80053; 80061; 85027

== ENCOUNTER → 2022-10-06 | Outpatient (CLI) | payer BC ==
[2022-10-06 16:07] LABS: ALT 21 U/L (10-49); AST 18 U/L (14-35); African American GFR (CKD) 70.1 (60.0-200.0); Albumin 4.1 g/dL (3.8-4.9); Albumin/Globulin Ratio 1.86 (1.60-3.17); Alkaline Phosphatase 83 U/L (41-126); BUN/Creat Ratio 26.36 Ratio (12.00-20.00); Carbon Dioxide 26.3 mmol/L (20.0-27.5); Chloride 106 mmol/L (96-109); Chol/HDL Ratio 1.75 Ratio; Globulin 2.2 g/dL (1.6-3.3); Glucose 118 mg/dL (70-110); LDL Cholesterol,Calculated 28.1 mg/dL (0.0-131.0); Non-African American GFR(CKD) 60.5 (60.0-200.0); Potassium 4.3 mmol/L (3.5-5.5); Sodium 142 mmol/L (135-145); Total Protein 6.3 g/dL (6.2-8.2); VLDL Calculation 10.58 mg/dL (5.00-40.00)
== END | disposition home or self-care (01) ==
LOC: LABWHC1 08:51
PROVIDERS: ATTEND Internal Medicine Interventional Cardiology
DX: E78.2 Mixed hyperlipidemia (principal)
CPT/HCPCS: 36415; 80053; 80061

== ENCOUNTER → 2024-12-20 | Outpatient (CLI) | payer BC ==
[2024-12-20 15:40] LABS: HCT 42.1 % (39.6-50.0); HGB 13.3 g/dL (13.0-17.0); MCH 31.6 pg (27.0-32.0); MCHC 31.6 g/dL (32.0-37.0); Mean Platelet Volume 11.2 FL (9.5-12.2); NRBC Per 100 WBC 0 X 10*3/uL (0.00-0.01); Platelet Count 201 X 10*3/uL (140-440); RBC 4.21 X 10*6/uL (4.40-5.60); RDW 13.7 % (11.5-14.5); WBC 8.08 X 10*3/uL (4.50-10.00)
[2024-12-20 15:51] LABS: Glucose 90 mg/dL (70-110)
[2024-12-20 15:52] LABS: Calcium 9.1 mg/dL (8.7-10.3); Carbon Dioxide 25.2 mmol/L (21.6-31.8); Chloride 104 mmol/L (96-109); Potassium 4.7 mmol/L (3.5-5.5); Sodium 140 mmol/L (135-145)
[2024-12-20 19:07] LABS: NT-Pro-B-Type Natriuretic Pept <36 pg/mL (0-450)
== END | disposition home or self-care (01) ==
LOC: LABWHC1 12:07
PROVIDERS: ATTEND Nurse Practitioner Adult Health
DX: R60.0 Localized edema (principal)
CPT/HCPCS: 36415; 80048; 83880; 85027